=== PATIENT | male | born 1970 | race Caucasian/White ===

== ENCOUNTER 2019-01-15 10:38 | Emergency (ER) | payer BC, OTHER ==
--- OUTSIDE RECORDS SUMMARY | 2019-01-15 11:08 | XMS REPORT | Continuity of Care Document ---
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 Mariza Garcia MD FACP Primary Care Physician Unavailable Payers Date Identification Numbers Payment Provider Subscriber Effective: 2014 Policy Number: [id number] Of CHRIS Perez PayID: [id number] [address] [address] [place] [address] Problems Active Problems Provider Date Essential hypertension Mariza Garcia MD Onset: 08/17/2018 Mixed hyperlipidemia Mariza Garcia MD Onset: 08/17/2018 Obstructive sleep apnea syndrome Mariza Garcia MD Onset: 08/17/2018 Alcoholic fatty liver Mariza Garcia MD Onset: 09/13/2018 Resolved Problems Liver function tests abnormal Mariza Garcia MD Onset: 09/13/2018 Resolved: 12/29/2018 Type II diabetes mellitus uncontrolled Mariza Garcia MD Onset: 2018 Resolved: 12/29/2018 Family History Date Family Member(s) Observation Comments General Heart Attack mother General Pacemaker mother General Heart Disease mother General Chickenpox when i was young Father 73 Father White Father Heart Disease ? 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 "6 years ago I drank 30 pack a day". 08/17/18. Tobacco Use Start: Unknown Patient has never smoked Exercise Type/Frequency Exercises sporadically Exercise Limitations Shortness Of Breath Guns in Home No Allergies, Adverse Reactions, Alerts Active Allergies Reaction Severity Comments Date NKDA 08/16/2018 Bee Sting Urticaria 08/17/2018 Medications Active Medications SIG Qnty Indications Ordering Provider Date No Active Medications Unknown 12/29/2018 History Medications Amlodipine Besylate take 1 tablet by 90tabs I10 Dawkins A 08/17/2018 - mouth daily for MD Radha 12/03/2018 5mg Tablets high blood pressure Celecoxib 1 by mouth every 30caps M54.12 Dawkins A 08/17/2018 - 200mg day with food for MD Radha 08/31/2018 Capsules 2 weeks and than as needed. M25.511 Cyclobenzaprine HCL 1 by mouth every night 10tabs M54.2 Unknown 2018 - 10mg as needed 08/15/2018 Tablets Lisinopril 15 mg daily I10 Unknown 06/06/2017 - 10mg Tablets 08/17/2018 Fenofibrate take 1 tablet by mouth E78.2 Unknown 06/06/2017 - 48mg Tablets daily for elevation of 08/17/2018 both cholesterol and triglycerides in blood Immunizations CPT Code Status Date Vaccine Lot # [id number] Given 02/04/2018 Influenza Virus Vaccine, Quadrivalent ([id number]), Derived From Cell Vital Signs Date Vital Result Comment 12/29/2018 10:19am Heart Rate 74 /min BP Systolic 130 mmHg BP Diastolic 75 mmHg Weight 223.00 lb 09/13/2018 12:00pm Heart Rate 70 /min BP Systolic 122 mmHg BP Diastolic 80 mmHg Weight 262.00 lb 08/31/2018 11:29am Heart Rate 80 /min BP Systolic 160 mmHg BP Diastolic 95 mmHg 08/17/2018 1:53pm Body Temperature 98.1 F O2 % BldC Oximetry 97 % Heart Rate 88 /min BP Systolic 125 mmHg BP Diastolic 100 mmHg BMI (Body Mass Index) 42.0 kg/m2 Weight 266.00 lb Height 66.75 inches 5'6.75" Results Test Date Facility Test Result H/L Range Note Comp Metabolic Panel 12/25/2018 [facility] Sodium 141 mmol/L N 135-145 [place], [place] [id number] [phone] Potassium 4.8 mmol/L N 3.5-5.0 Chloride 108 mmol/L N 101-111 Co2 Carbon Dioxide 26 mmol/L N 22-32 Anion Gap 7 mmol/L N 2-11 Glucose 99 mg/dL N 70-100 Blood Urea Nitrogen 16 mg/dL N 6-24 Creatinine 0.99 mg/dL N 0.67-1.17 BUN/Creatinine Ratio 16.2 N 8-20 Calcium 9.6 mg/dL N 8.6-10.3 Total Protein 7.3 g/dL N 6.4-8.9 Albumin 4.6 g/dL N 3.2-5.2 Globulin 2.7 g/dL N 2-4 Albumin/Globulin Ratio 1.7 N 1-3 Total Bilirubin 0.50 mg/dL N 0.2-1.0 Alkaline Phosphatase 48 U/L N 34-104 Alt 22 U/L N 7-52 Ast 23 U/L N 13-39 Egfr Non- 81.4 >60 Egfr 98.5 >60 1 Laboratory test finding 12/25/2018 [facility] GGTP 14 U/L N 9- 64.0 2 [place] [address] [phone] Hemoglobin A1c (Glyco HGB) 5.6 % N 4.0-5.6 3 Triglyceride 235 mg/dL High <150 4 LDL Cholesterol Direct 159 mg/dL High <100 5 TSH (Thyroid Stim Horm) 1.13 mcIU/mL N 0.34-5.60 6 Xray 09/12/2018 [facility] Ultrasound, Fatty [address] Abdominal; liver/[place] [address] Limited [phone] Liver 09/09/2018 [facility] Total Protein 7.5 g/dL N 6.4-8 [place] [address] .9 Panel [phone] Albumin 4.7 g/dL N 3.2-5.2 Globulin 2.8 g/dL N 2-4 Albumin/Globulin Ratio 1.7 N 1-3 Total Bilirubin 0.60 mg/dL N 0.2-1.0 Direct Bilirubin 0.10 mg/dL N 0.03-0.18 Indirect Bilirubin 0.5 mg/dL N 0.3-1.0 Alkaline Phosphatase 46 U/L N 34-104 Alt 127 U/L High 7-52 Ast 76 U/L High 13-39 Laboratory 09/09/2018 [facility] GGTP 39 U/L N 9-64.0 [place] [address] [phone] Inr/Protime 09/09/2018 [facility] Inr 0.91 N 0.77-1.02 [place] [address] [phone] Laboratory 09/09/2018 [facility] Hepatitis B [place] [address] Surface Ag [phone] Hepatitis C 09/09/2018 [facility] HCV Index < 0.0 [place] [address] [phone] Hepatitis C Antibody Nonreactive Nonreactive Laboratory test 09/09/2018 [facility] Ferritin 620.7 ng/mL High 24-336 finding [place], [place] [id number] [phone] Iron & Iron 09/09/2018 [facility] Iron 112 g/dL N 50-212 Binding Capacity [place], [place] [id number] [phone] Unsaturated Iron Binding < 383 g/dL Total Iron Binding Capacity 398 g/dL N 250-450 % Iron Saturation 28 % N 15-55 Laboratory test 09/09/2018 [facility] Transferrin 284 mg/dL N 203-362 finding [place], [place] [address] [phone] Insulin Level 24.0 mcIU/mL High 2.0-16.0 Hemoglobin A1c (Glyco HGB) 6.5 % High 4.0-5.6 7 Lipase 22 U/L N 11.0-82.0 Order 08/31/2018 [facility] EMG w/Nerve Abnormal 8 LORRAINE GUTIERREZ Conduct Study, [place] [address] Upper [phone] Laboratory test 08/23/2018 [facility] LDL Cholesterol 168 mg/dL 8 [place] [address] Direct [phone] Urinalysis Profile 08/23/2018 [facility] Urine Color Yellow [place], [place] [id number] [phone] Urine Appearance Cloudy Urine Specific [place] 1.018 N 1.010-1.030 Urine pH 5.0 N 5-9 Urine Urobilinogen Negative Negative Urine Ketones Negative Negative Urine Protein Negative Negative Urine Leukocytes Negative Negative Urine Blood Negative Negative Urine Nitrite Negative Negative Urine Bilirubin Negative Negative Urine Glucose Negative Negative Lipid Profile 08/23/2018 [facility] Triglycerides 648 mg/dL High <150 9 (Trig/Chol/HDL) [place], [place] [address] [phone] Cholesterol 289 mg/dL High <200 10 HDL Cholesterol 29.5 mg/dL Low >40 11 LDL Cholesterol (SEE NOTE) mg/dL 12 Comp Metabolic Panel 08/23/2018 [facility] Sodium 141 mmol/L N 135-145 [place] [address] [phone] Potassium 4.1 mmol/L N 3.5-5.0 Chloride 107 mmol/L N 101-111 Co2 Carbon Dioxide 26 mmol/L N 22-32 Anion Gap 8 mmol/L N 2-11 Glucose 118 mg/dL High 70-100 Blood Urea Nitrogen 13 mg/dL N 6-24 Creatinine 0.97 mg/dL N 0.67-1.17 BUN/Creatinine Ratio 13.4 N 8-20 Calcium 9.4 mg/dL N 8.6-10.3 Total Protein 7.4 g/dL N 6.4-8.9 Albumin 4.8 g/dL N 3.2-5.2 Globulin 2.6 g/dL N 2-4 Albumin/Globulin Ratio 1.8 N 1-3 Total Bilirubin 0.40 mg/dL N 0.2-1.0 Alkaline Phosphatase 51 U/L N 34-104 Alt 135 U/L High 7-52 Ast 76 U/L High 13-39 Egfr Non- 83.3 >60 Egfr 100.8 >60 13 Xray 08/23/2018 [facility] Spine, Cervical, 2 Or 3 [place] [address] [phone] Shoulder, Complete, Min. Of 2 V RT OA CBC No Diff 08/23/2018 [facility] White Blood 4.9 10^3/uL N 3.5-10.8 [place] [address] Count [phone] Red Blood Count 5.27 10^6/uL N 4.18-5.48 Hemoglobin 16.3 g/dL N 14.0-18.0 Hematocrit 48 % High 36-46 Mean Corpuscular Volume 92 fL N 80-94 Mean Corpuscular Hemoglobin 31 pg N 27-31 Mean Corpuscular HGB Conc 34 g/dL N 31-36 Red Cell Distribution Width 13 % N 10.5-15 Platelet Count 179 10^3/uL N 150-450 Mean Platelet Volume 9.6 fL N 7.4-10.4 1 Because ethnic data is not always readily available, this report includes an eGFR for both -Americans and non- Americans. The National Kidney Disease Education Program (NKDEP) does not endorse the use of the MDRD equation for patients that are not between the ages of 18 and 70, are , have extremes of body size, muscle mass, or nutritional status, or are non- or non-. According to the National Kidney Foundation, irrespective of diagnosis, the stage of the disease is based on the level of kidney function: Stage Description GFR(mL/min/1.73 m(2)) 1 Kidney damage with normal or decreased GFR 90 2 Kidney damage with mild decrease in GFR 60-89 3 Moderate decrease in GFR 30-59 4 Severe decrease in GFR 15-29 5 Kidney failure <15 (or dialysis) 2 FASTING 3 Therapeutic target for the treatment of diabetes mellitus patients is <7% HBA1C, and in selective patients <6.0%. Please refer to [place] [employer] Association diabetic care guidelines for further information. 4 Desirable: <150 Borderline High: 150-199 High: 200-499 Very High: >500 5 Desirable: <100 Near Optimal: 100-129 Borderline High: 130-159 High: 160-189 Very High: >189 6 FASTING 7 Therapeutic target for the treatment of diabetes mellitus patients is <7% HBA1C, and in selective patients <6.0%. Please refer to [place] [employer] diabetic care guidelines for further information. 8 Desirable: <100 Near Optimal: 100-129 Borderline High: 130-159 High: 160-189 Very High: >189 9 Desirable: <150 Borderline High: 150-199 High: 200-499 Very High: >500 10 Desirable: <200 Borderline High: 200-239 High: >239 11 Low: <40 Desirable: 40-60 High: >60 12 Unable to calculate LDL as triglyceride is > 400 13 Because ethnic data is not always readily available, this report includes an eGFR for both -Americans and non- Americans. The National Kidney Disease Education Program (NKDEP) does not endorse the use of the MDRD equation for patients that are not between the ages of 18 and 70, are , have extremes of body size, muscle mass, or nutritional status, or are non- or non-. According to the National Kidney Foundation, irrespective of diagnosis, the stage of the disease is based on the level of kidney function: Stage Description GFR(mL/min/1.73 m(2)) 1 Kidney damage with normal or decreased GFR 90 2 Kidney damage with mild decrease in GFR 60-89 3 Moderate decrease in GFR 30-59 4 Severe decrease in GFR 15-29 5 Kidney failure <15 (or dialysis) Encounters Type Date Location Provider Dx Diagnosis Office Visit 12/29/2018 Main Office Mariza Garcia, K70.0 Alcoholic fatty 10:00a liver R94.5 Abnormal results of liver function studies I10 Essential (primary) hypertension E78.2 Mixed hyperlipidemia R73.01 Impaired fasting glucose G47.33 Obstructive sleep apnea (adult) (pediatric) Office Visit 09/13/2018 12:00p Main Office Mariza Hernandez4.12 RadiculopathRadha franklin MD cervical region K70.0 Alcoholic fatty liver R94.5 Abnormal results of liver function studies I10 Essential (primary) hypertension E78.2 Mixed hyperlipidemia R73.01 Impaired fasting glucose G47.33 Obstructive sleep apnea (adult) (pediatric) G56.01 Carpal tunnel syndrome, right upper limb Office Visit 08/31/2018 10:40a Main Office Mariza Abdullahi M54.12 RadiculopathRadha franklin MD cervical region M25.511 Pain in right shoulder I10 Essential (primary) hypertension E78.2 Mixed hyperlipidemia R73.01 Impaired fasting glucose R94.5 Abnormal results of liver function studies G47.33 Obstructive sleep apnea (adult) (pediatric) Office Visit 08/17/2018 1:00p Main Office Mariza Hernandez4.12 RadiculopathRadha franklin MD cervical region M54.2 Cervicalgia M25.511 Pain in right shoulder I10 Essential (primary) hypertension E78.2 Mixed hyperlipidemia G47.33 Obstructive sleep apnea (adult) (pediatric) Plan of Treatment 12/29/2018 - Mariza Garcia MDK70.0 Alcoholic fatty liverComments:Improved with alcohol use reduction.Lifestyle and dietary modifications advised.R94.5 Abnormal results of liver function [id number] Essential (primary) hypertensionComments:Off Rx for 1 month and stable state.Monitoring advised.E78.2 Mixed hyperlipidemiaComments:Improved.Lifestyle and dietary modifications advised.R73.01 Impaired fasting glucoseComments:Improved.G47.33 Obstructive sleep apnea (adult) (pediatric)Comments:Asymptomatic after weight loss.Advised to follow with sleep clinic as planned.AllNew Medication:No Active Medications -
[2019-01-15] MEDS ORDERED: Cyclobenzaprine TAB* 10 MG PO ONE (11:40)
[2019-01-15] MEDS ORDERED: Ibuprofen TAB* 600 MG PO ONE (11:40)
[2019-01-15 13:00] VITALS: BP 132/74
--- NOTE | 2019-01-15 13:39 | ED ---
Head Injury - HPI Summary HPI Summary: Patient is a 48-year-old male who presents to the ED with left-sided head injury and neck pain after striking the left side of his head onto a running board of a truck after he slipped and fell. He denies any headache, confusion, visual changes or disturbances or memory loss. He denies taking blood thinners. He endorses bilateral neck stiffness following the fall. He denies any other pain otherwise. He states he is otherwise healthy and takes no medication. He has not taken any medication prior to arrival. Accident happened approximately 4 hours prior to arrival. He has remained ambulatory. - History Of Current Complaint Chief Complaint: EDHeadInjury Stated Complaint: HEAD INJ NECK PAIN PER PT Time Seen by Provider: 01/15/19 10:50 Hx Obtained From: Patient Mechanism Of Injury: Direct Blow Onset/Duration: Started Hours Ago Onset of Pain: Hours Severity Currently: Moderate Severity Initially: Moderate Pain Intensity: 7 Pain Scale Used: 0-10 Numeric Location: Discrete At: - left side of the head/bilateral neck stiffness Associated Signs And Symptoms: Negative - Risk Factors SDH Risk Factor: Negative - Allergies/Home Medications Allergies/Adverse Reactions: Allergies Allergy/AdvReac Type Severity Reaction Status Date / Time No Known Allergies Allergy Verified 01/15/19 11:00 PMH/Surg Hx/FS Hx/Imm Hx Previously Healthy: Yes Endocrine/Hematology History: Denies: Hx Anticoagulant Therapy - Immunization History Hx Pertussis Vaccination: No Immunizations Up to Date: Yes Infectious Disease History: No Infectious Disease History: Denies: Traveled Outside the [place] in Last 30 Days - Social History Occupation: Employed Full-time Lives: With Family Alcohol Use: None Hx Substance Use: No Substance Use Type: Reports: None Smoking Status (MU): Unknown if Ever Smoked Review of Systems Constitutional: Negative Negative: Fever, Chills, Fatigue, Skin Diaphoresis Negative: Palpitations, Chest Pain Negative: Shortness Of Breath, Cough Genitourinary: Negative Positive: no symptoms reported, see HPI Positive: Myalgia - bilateral neck stiffness. Negative: Arthralgia Negative: Headache, Weakness, Paresthesia, Numbness, Syncope All Other Systems Reviewed And Are Negative: Yes Physical Exam Triage Information Reviewed: Yes Vital Signs On Initial Exam: Initial Vitals Temp Pulse Resp BP Pulse Ox 97.8 F 48 18 154/78 100 01/15/19 10:44 01/15/19 10:44 08/12/19 10:44 01/15/19 10:44 01/15/19 10:44 Vital Signs Reviewed: Yes Appearance: Positive: Well-Appearing, Well-Nourished Skin: Positive: Warm, Skin Color Reflects Adequate Perfusion Head/Face: Positive: Normal Head/Face Inspection Neck: Positive: Supple, No Lymphadenopathy Respiratory/Lung Sounds: Positive: Clear to Auscultation, Breath Sounds Present Cardiovascular: Positive: RRR, Pulses are Symmetrical in both Upper and Lower Extremities Musculoskeletal: Positive: Normal, Strength/ROM Intact, Other - Unable to rotate about the neck due to pain. Continues to be able to flex and extend. Neurological: Positive: Sensory/Motor Intact, Alert, Oriented to Person Place, Time, Speech Normal Psychiatric: Positive: Affect/Mood Appropriate AVPU Assessment: Alert Diagnostics - Vital Signs Vital Signs Temp Pulse Resp BP Pulse Ox 01/15/19 12:59 98.0 F 46 18 132/74 97 01/15/19 10:44 97.8 F 48 18 154/78 100 - Laboratory Lab Statement: Any lab studies that have been ordered have been reviewed, and results considered in the medical decision making process. Head Injury Course/Dx Course Of Treatment: During this course treatment, the patient's evaluated for left-sided head injury as well as bilateral neck stiffness and pain. Patient states he has been having pain since he hit the left side of his head. He denies any blood thinners. He denies any headache, confusion, visual changes. CT brain and C-spine obtained. These are both negative for any fractures are intracranial abnormalities. This was discussed with the patient. Flexeril was given for neck stiffness. On physical examination, lungs CTA, RRR, patient is unable to rotate about the neck due to pain. He is able to flex and extend at the neck. Denies any pain to the cervical thoracic or lumbar spine otherwise. Pain is directly at the base of the skull with slight pain to the left side of the head without headache. Patient is okay with plan and discharge and is given Flexeril as prescription. He is encouraged ibuprofen and moist heat. - Diagnoses Differential Diagnosis/HQI/PQRI: Cervical Sprain, Contusion Provider Diagnoses: Cervical strain Discharge - Sign-Out/Discharge Documenting (check all that apply): Patient Departure Patient Received Moderate/Deep Sedation with Procedure: No - Discharge Plan Condition: Stable Disposition: HOME Prescriptions: Cyclobenzaprine TAB* [Flexeril TAB*] 10 mg PO BID PRN #10 tab PRN Reason: Spasms Patient Education Materials: Cervical Strain (ED) Referrals: Mariza Garcia MD [Primary Care Provider] - Additional Instructions: Ibuprofen 600mg three times daily Moist heat to the area Gentle stretches flexeril twice daily x 5 days - Billing Disposition and Condition Condition: STABLE Disposition: Home
== END 2019-01-15 13:05 | disposition home or self-care (01) ==
LOC: ED 10:38
DX: S16.1XXA Strain of muscle, fascia and tendon at neck level, initial encounter (principal); W01.10XA Fall on same level from slipping, tripping and stumbling with subsequent striking against unspecified object, initial encounter; Y92.812 Truck as the place of occurrence of the external cause; M50.323 Other cervical disc degeneration at C6-C7 level
CPT/HCPCS: 70450; 72125; 99281; A9270-GY

== ENCOUNTER 2019-02-09 11:16 | Emergency (ER) | payer BC, OTHER ==
[2019-02-09 11:44] VITALS: BP 130/74
--- NOTE | 2019-02-09 11:46 | UC ---
Eye Complaint HPI - HPI Summary HPI Summary: 48 yo male presents with RIGHT eye redness and clear/yellow drainage for the last 2 days getting worse. This morning he woke with the eye crusted shut. Denies vision changes, FB sensation, or FB into the eye. - History of Current Complaint Chief Complaint: UCEar Stated Complaint: EYE ISSUE Time Seen by Provider: 02/09/19 11:46 Hx Obtained From: Patient Onset/Duration: Gradual Onset Severity Initially: Mild Severity Currently: Moderate Pain Intensity: 5 - Allergies/Home Medications Allergies/Adverse Reactions: Allergies Allergy/AdvReac Type Severity Reaction Status Date / Time No Known Allergies Allergy Verified 02/09/19 11:45 PMH/Surg Hx/FS Hx/Imm Hx - Additional Past Medical History Additional PMH: None Other History Of: Negative For: Anticoagulant Therapy - Surgical History Surgical History: Yes Surgery Procedure, Year, and Place: Lt INDEX FINGER - REPAIRED TENDON - Family History Known Family History: Positive: Non-Contributory - Social History Lives: With Family Alcohol Use: None Substance Use Type: None Smoking Status (MU): Never Smoked Tobacco Review of Systems All Other Systems Reviewed And Are Negative: No Constitutional: Positive: Negative Skin: Positive: Negative Eyes: Positive: Drainage, Eye Redness ENT: Positive: Negative Respiratory: Positive: Negative Cardiovascular: Positive: Negative Neurological: Positive: Negative Psychological: Positive: Negative Physical Exam - Summary Physical Exam Summary: GENERAL: WDWN. No pain distress. SKIN: No rashes, sores, lesions, or open wounds. HEENT: Head: AT/NC Eyes: EOM intact. PERRLA. RIGHT EYE: Mild scleral injection. Conjunctiva with mild erythema and inflammation. Mild clear/yellow discharge. LEFT EYE: Conjunctiva clear without inflammation or discharge. No FBs appreciated Nose: NTTP maxillary and frontal sinus. NECK: Supple. Nontender. No lymphadenopathy. CHEST: No accessory muscle use. Breathing comfortably and in no distress. CV: Pulses intact. Cap refill <2seconds NEURO: Alert. PSYCH: Age appropriate behavior. Triage Information Reviewed: Yes Vital Signs: Initial Vital Signs Temp 97.9 F 02/09/19 11:42 Pulse 47 02/09/19 11:42 Resp 16 02/09/19 11:42 BP 130/74 02/09/19 11:42 Pulse Ox 100 02/09/19 11:42 Vital Signs Reviewed: Yes Eye Complaint Course/Dx - Course Course Of Treatment: RIGHT conjunctivitis - Differential Dx/Diagnosis Provider Diagnosis: Conjunctivitis Discharge ED - Sign-Out/Discharge Documenting (check all that apply): Patient Departure All imaging exams completed and their final reports reviewed: No Studies - Discharge Plan Condition: Stable Disposition: HOME Prescriptions: Polymyx/Trimethoprim OPTH* [Polytrim OPHTH*] 1 drop RIGHT EYE QID #1 btl Patient Education Materials: Blepharitis (ED), Conjunctivitis (ED) Referrals: Mariza Garcia MD [Primary Care Provider] - Additional Instructions: If you develop a fever, shortness of breath, chest pain, new or worsening symptoms - please call your PCP or go to the ED immediately. - Billing Disposition and Condition Condition: STABLE Disposition: Home
== END 2019-02-09 12:00 | disposition home or self-care (01) ==
LOC: UCEAST 11:16
DX: H10.31 Unspecified acute conjunctivitis, right eye (principal)
CPT/HCPCS: 99212; G0463